=== PATIENT | male | born 1965 | race Caucasian/White ===

== ENCOUNTER → 2016-09-30 | Day surgery (SDC) | payer BC ==
[2016-09-25 11:38] VITALS: Ht 167.6 cm; Wt 100.0 kg
[~2016-09-30] VITALS: Ht 167.6 cm; Wt 100.0 kg
[~2016-09-30] MED LIST: ATROPINE SULFATE 0.1 MG/ML 5ML SYR IV PRN; DIGEST GOLD PO; EpHEDrine SULFATE INJ 50 MG/ML AMP IV PRN; FLUT0.15; GLYCOPYRROLATE INJ 0.2 MG/ML VIAL ONE; LISI-729 PO; MIDAZOLAM HCL 1 MG/ML 2ML VIAL ONE; MISCCAP80 PO; MONT1TAB3 PO; MULT-506 PO; MULT-663 PO; OLOP1DRO OPB; OMEG12006 PO; ONDANSETRON INJ 2 MG/ML 2 ML VIAL IV PRN; POLY335019 PO; PROPOFOL IV EMULSION 10 MG/ML 20 ML VIAL IV ONE; SIME1CAP11 PO; SUCR1TAB PO
--- NOTE | 2016-09-30 08:24 | Endo History and Physical ---
History & Physical Date of Service: Sep 30, 2016. Chief Complaint: screening,family history colon cancer Referring Physician: Dr.Richard Nadine Godoy,Dr. Destin Lee History of Present Illness Family history of colon cancer (father < 65) for surveillance exam today. Also with a long history of abdominal pain and alteration of bowel habits. Past Medical History Hypertension Past Surgical History Hx Cardiac Surgery: No Hx Internal Defibrillator: No Hx Pacemaker: No Hx Abdominal Surgery: Yes ([facility], RIGHT INGUINAL HERNIA REPAIR) Hx of Implantable Prosthesis: No Hx Post-Op Nausea and Vomiting: No Hx Cancer Surgery: No Hx Thoracic Surgery: No Hx Orthopedic: No Hx Urinary Tract Surgery: No Family History Colon CA Social History Smoking Status: Never Smoker Hx Substance Use: No Hx Alcohol Use: Yes (OCCAS.) Allergies Coded Allergies: Azithromycin (Verified Allergy, Mild, LIVER SWELLING, 09/25/16) Current Medications Reported Home Medications Medications Dose Route/Sig Max Daily Dose Days Date Category Sucralfate 1 Gm Tab 1 Tab PO BID 30 09/30/16 Reported Pazeo (Olopatadine HCl) 0.7 % John 1 Drop OPB QAM 09/25/16 Reported Simethicone 180 Mg Cap 1 Cap PO BID 09/25/16 Reported [Digest Gold] 1 Cap PO AC 11/08/15 Reported Multivitamin (Multivitamins) Tab 1 Tab PO QAM 11/08/15 Reported [place] 3 ([place]-3 Fatty Acids) 1 Cap Cap 1 Cap PO BID 11/08/15 Reported Probiotic (Probiotic Product) 1 Cap Cap 1 Cap PO BID 11/08/15 Reported Miralax (Polyethylene Glycol 3350) 1 Pow Pow 17 Gm PO HS 11/08/15 Reported Flonase Allergy Relief (Fluticasone Propionate (Nasal)) 50 Mcg/Act Spr 2 [place] NA QAM 05/16/15 Reported Singulair (Montelukast Sodium) 10 Mg Tab 10 Mg PO QAM 05/16/15 Reported Prinivil (Lisinopril) 5 Mg Tab 5 Mg PO QPM 05/16/15 Reported Vital Signs Weight (Kilograms): 100 Height (Feet): 5 Height (Inches): 6 Date Time Temp Pulse Resp B/P (MAP) Pulse Ox O2 Delivery O2 Flow Rate FiO2 09/30/16 08:10 36.9 50 16 111/70 (84) 99 Room Air Physical Exam General Appearance: no apparent distress Respiratory/Chest: Auscultation: breath sounds normal Cardiovascular: Heart Auscultation: RRR Abdomen: Inspection & Palpation: soft Assessment and Plan Colnooscopy for surveillance of colon polyps and a strong family history of colon cancer. Also for f/u evalaution of altered bowel habits.
--- NOTE | 2016-09-30 08:58 | Discharge Instructions ---
Endoscopy Patient Instructions Date / Procedure(s) Performed Sep 30, 2016. Colonoscopy Allergy Information Coded Allergies: Azithromycin (Verified Allergy, Mild, LIVER SWELLING, 09/25/16) Discharge Date / Findings Sep 30, 2016. Internal hemorroids Medication Instructions Reported Home Medications Medications Dose Route/Sig Max Daily Dose Days Date Category Sucralfate 1 Gm Tab 1 Tab PO BID 30 09/30/16 Reported Pazeo (Olopatadine HCl) 0.7 % John 1 Drop OPB QAM 09/25/16 Reported Simethicone 180 Mg Cap 1 Cap PO BID 09/25/16 Reported [Digest Gold] 1 Cap PO AC 11/08/15 Reported Multivitamin (Multivitamins) Tab 1 Tab PO QAM 11/08/15 Reported [place] 3 ([place]-3 Fatty Acids) 1 Cap Cap 1 Cap PO BID 11/08/15 Reported Probiotic (Probiotic Product) 1 Cap Cap 1 Cap PO BID 11/08/15 Reported Miralax (Polyethylene Glycol 3350) 1 Pow Pow 17 Gm PO HS 11/08/15 Reported Flonase Allergy Relief (Fluticasone Propionate (Nasal)) 50 Mcg/Act Spr 2 [place] NA QAM 05/16/15 Reported Singulair (Montelukast Sodium) 10 Mg Tab 10 Mg PO QAM 05/16/15 Reported Prinivil (Lisinopril) 5 Mg Tab 5 Mg PO QPM 05/16/15 Reported Provider Instructions Activity Restrictions - No exercising or heavy lifting for 24 hours. - Do not drink alcohol the day of the procedure. - Do not drive a car or operate machinery until the day after the procedure. - Do not make any important decisions or sign important papers in 24 hours after the procedure. Following Day: - Return to full activity which may include returning to work/school. Diet Start your diet with liquids and light foods (jello, soup, juice, toast). Then eat your usual diet if not nauseated. Treatment For Common After Affects For mild abdominal pain, bloating, or excessive gas: - Rest - Eat lightly - Lie on right side Follow-Up Information Follow-up with Dr.Richard Nadine Godoy and Dr. Destin Lee as scheduled Await pathology and culture results Repeat colonoscopy in 5 years for screening purposes Anesthesia Information What You Should Know You have had a procedure that required some medicine to reduce anxiety and discomfort. This treatment is called moderate sedation. After receiving the treatment, you may be sleepy, but you will be able to breathe on your own. The effects of the treatment may last for several hours. Follow these instructions along with Activity/Diet recommendations noted above: * Do NOT do anything where dizziness or clumsiness would be dangerous. * Rest quietly at home today, then you can be up and about tomorrow. * Have a responsible person stay with you the rest of today. * You may have had an I.V. today. If so, you may take the dressing off later today. Recommendations Call your doctor if: * Trouble breathing * Continuous vomiting for more than 24 hours * Temperature above 101 degrees * Severe abdominal pain or bloating * Pain not relieved by pain medicine ordered * There is increased drainage or redness from any incision * A large amount of rectal bleeding greater than 2-3 tablespoons. (If you had a polyp/s removed or have hemorrhoids, a small amount of blood - from the rectum is to be expected.) * You have any unanswered questions or concerns. IN THE EVENT OF A SERIOUS EMERGENCY, GO TO THE NEAREST EMERGENCY ROOM Your discharge instructions were prepared by provider Elvis Llanos. Patient Instructions Signature Page Raymundo Cueva Patient (or Guardian) Signature/Date: I have read and understand the instructions given to me by my caregivers. Caregiver/RN/Doctor Signature/Date: The above-named patient and/or guardian has received patient instructions on this date. + Original Patient Signature Page (only) stays with chart. Please make copy for patient.
--- NOTE | 2016-09-30 09:13 | Anesthesiology Progress Note ---
Anesthesia Post Op Note Date & Time Sep 30, 2016 at 09:13 Vital Signs Pain Intensity: 3 Vital Signs Past 12 Hours Date Time Temp Pulse Resp B/P (MAP) Pulse Ox O2 Delivery O2 Flow Rate FiO2 09/30/16 08:58 67 16 113/54 (73) 96 Room Air 09/30/16 08:10 36.9 50 16 111/70 (84) 99 Room Air Notes Mental Status: alert / awake / arousable, participated in evaluation Pt Amnestic to Procedure: Yes Nausea / Vomiting: adequately controlled Pain: adequately controlled Airway Patency, RR, SpO2: stable & adequate BP & HR: stable & adequate Hydration State: stable & adequate Anesthetic Complications: no major complications apparent
[2016-09-30 09:28] VITALS: BP 101/54; PULSE 67; O2SAT 97
--- NOTE | 2016-09-30 09:52 | GI REPORT ---
Procedure Date: 09/30/2016 8:28 AM Procedure: Colonoscopy Indications: Screening in patient at increased risk: Family history of 1st-degree relative with colorectal cancer, Incidental abdominal distress noted, Incidental change in bowel habits noted Medicines: Monitored Anesthesia Care Complications: No immediate complications. Estimated blood loss: Minimal. Estimated Blood Loss: Estimated blood loss was minimal. Procedure: Pre-Anesthesia Assessment: - Prior to the procedure, a History and Physical was performed, and patient medications, allergies and sensitivities were reviewed. The patient's tolerance of previous anesthesia was reviewed. - The risks and benefits of the procedure and the sedation options and risks were discussed with the patient. All questions were answered and informed consent was obtained. - Patient identification and proposed procedure were verified prior to the procedure by the physician, the nurse and the fern gatherer. The procedure was verified in the procedure room. - Pre-procedure physical examination revealed no contraindications to sedation. - ASA Grade Assessment: II - A patient with mild systemic disease. - After reviewing the risks and benefits, the patient was deemed in satisfactory condition to undergo the procedure. - The anesthesia plan was to use monitored anesthesia care (MAC). - Immediately prior to administration of medications, the patient was re-assessed for adequacy to receive sedatives. - The heart rate, respiratory rate, oxygen saturations, blood pressure, adequacy of pulmonary ventilation, and response to care were monitored throughout the procedure. - The physical status of the patient was re-assessed after the procedure. After I obtained informed consent, the scope was passed under direct vision. Throughout the procedure, the patient's blood pressure, pulse, and oxygen saturations were monitored continuously. The scope was introduced through the anus and advanced to the terminal ileum. The colonoscopy was performed without difficulty. The patient tolerated the procedure well. The quality of the bowel preparation was good. Findings: The perianal and digital rectal examinations were normal. Pertinent negatives include normal sphincter tone. The terminal ileum appeared normal. Normal mucosa was found in the entire colon. Biopsies for histology were taken with a cold forceps from the entire colon for evaluation of microscopic colitis. Fluid aspiration was performed through the scope suction channel. Sample(s) were sent for bacterial cultures, Clostridium difficile and ova and parasites. Internal hemorrhoids were found during retroflexion. The hemorrhoids were mild. The exam was otherwise without abnormality. Impression: - The examined portion of the ileum was normal. - Normal mucosa in the entire examined colon. Biopsied. Fluid aspiration performed. - Internal hemorrhoids. - The examination was otherwise normal. Recommendation: - Discharge patient to home (ambulatory). - Advance diet as tolerated today. - Await pathology results. - Repeat colonoscopy in 5 years for screening purposes. Elvis Llanos D.O. Elvis Llanos, 09/30/2016 8:57:06 AM This report has been signed electronically. Note Initiated On: 09/30/2016 8:28 AM I attest to the content of the Intraoperative Record and orders documented therein, exceptions below
[2016-10-01 22:56] LABS: CRYPTOSPORIDIUM AG TC 37213 NOT DETECTED (NOT DETECTED); ISOSPORA+CYCLOSPORA NOT DETECTED (NOT DETECTED); O&P GIARDIA AG NOT DETECTED (NOT DETECTED)
== END | disposition home or self-care (01) ==
LOC: C.GI 07:32
PROVIDERS: ATTEND Internal Medicine Gastroenterology
DX: Z12.11 Encounter for screening for malignant neoplasm of colon (principal); K64.8 Other hemorrhoids; Z80.0 Family history of malignant neoplasm of digestive organs; I10 Essential (primary) hypertension; Z79.899 Other long term (current) drug therapy